=== PATIENT | female | born 1950 | race Caucasian/White ===

== ENCOUNTER 2021-12-10 07:16 | Day surgery (SDC) | payer OTHER ==
[2021-12-10] MEDS ORDERED: LIDOCAINE HCL/PF 2% SDV 5ML VIAL ONE (07:44)
[2021-12-10] MEDS ORDERED: PROPOFOL 20 ML ONE ×4 (07:44)
== END 2021-12-10 09:16 | disposition home or self-care (01) ==
LOC: FASU-ENDO 07:16
PROVIDERS: ATTEND Internal Medicine Gastroenterology
PROC: 0DJD8ZZ Inspection of Lower Intestinal Tract, Via Natural or Artificial Opening Endoscopic (ICD-10-PCS; principal; 2021-12-10 08:25)
DX: Z12.11 Encounter for screening for malignant neoplasm of colon (principal); K64.1 Second degree hemorrhoids
CPT/HCPCS: 82962